=== PATIENT | male | born 1960 | race Caucasian/White ===

== ENCOUNTER 2025-04-01 07:24 | Inpatient (IN) ==
--- NOTE | 2025-03-25 13:18 | Anesthesiology Consultation ---
Date of Service March 25, 2025 Assessment & Plan (1) Encounter for pre-operative examination: - Infectious disease screening: Per assessment on 03/25/25- No known recent infectious disease contacts or current infectious disease symptoms. - Acceptable risk for surgery pending surgeon-ordered PCP preop evaluation (Dr. Robina Jurado, appt 03/25). Chart Review Chart Review: Patient NOT seen in Pre Admission Testing History Surgery Operation Date: 04/01/25 07:45 Proposed Procedures p L4-L5 Decompression and Fusion - Kareem Ventura, DO Height/Weight Height: 5 ft 11 in Weight: 83.915 kg Allergies Allergy/AdvReac Type Severity Reaction Status Date / Time No Known Allergies Allergy Verified 03/25/25 11:42 Medications Home Medications Medication Instructions Recorded Confirmed Last Taken atorvastatin 20 mg tablet 20 mg PO HS 03/25/25 03/25/25 Unknown cholecalciferol (vitamin D3) 125 125 mcg PO DAILY 03/25/25 03/25/25 Unknown mcg (5,000 unit) tablet (Vitamin D3) loperamide 2 mg capsule 2 mg PO Q6H PRN Diarrhea 03/25/25 03/25/25 Unknown multivitamin 1 tab PO QAM 03/25/25 03/25/25 Unknown Past Medical History Medical History CAD (coronary artery disease) stent x1 (2018) Constipation Dyslipidemia History of COVID-19 (2022) resolved IBS (irritable bowel syndrome) Past Surgical History Surgical History History of lumbar laminectomy x2 Hx of cardiac catheterization 2018 ( [place])- stent x1 Hx of colonoscopy Social History Smoking Status: Never smoker Do You Dip or Chew Tobacco: No Hx Alcohol Use: Yes alcohol intake frequency: a few times a week Hx Substance Use: No substance use type: does not use Lab Results Anesthesia Preop Results Results Anesthesia Widget: WBC 8.91 K/ul (4.8-10.8) 03/18/25 Hgb 15.2 g/dl (14.0-18.0) 03/18/25 Hct 45.8 % (42.0-52.0) 03/18/25 Plt 176 K/uL (130-400) 03/18/25 Na 137 mmol/L (136-145) 03/18/25 K 4.5 mmol/L (3.5-5.1) 03/18/25 Cl 101 mmol/L (98-107) 03/18/25 CO2 29 mmol/L (21-32) 03/18/25 BUN 22 mg/dl (6-23) 03/18/25 Creat 0.85 mg/dl (0.6-1.4) 03/18/25 Glucose Level 99 mg/dl (70-99(Fasting)) 03/18/25 PT 10.0 Seconds (9.0-12.0) 03/18/25 PTT 28 Seconds (21-31) 03/18/25 INR 0.9 (0.9-1.1) 03/18/25 Urine Color Yellow 03/18/25 Urine Appearance Clear (Clear) 03/18/25 Urine pH 5.5 (4.5-7.5) 03/18/25 Urine Specific [place] 1.023 (1.000-1.030) 03/18/25 Urine Protein Negative (Negative) 03/18/25 Urine Glucose (UA) Negative (Negative) 03/18/25 Urine Ketones Negative (Negative) 03/18/25 Urine Blood Negative (Negative) 03/18/25 Urine Nitrite Negative (Negative) 03/18/25 Urine Bilirubin Negative (Negative) 03/18/25 Urine Urobilinogen Negative (Negative) 03/18/25 Urine Leukocyte Esterase Negative (Negative) 03/18/25 Blood Type O Positive 03/18/25 Antibody Screen NEGATIVE 03/18/25 Testing Laboratory Results Urine culture 03/18/25: No growth Electrocardiogram Date: 03/18/25 Findings: + NSR @ (77) Chest X-Ray Date: 03/18/25 Findings: + NAD
[2025-04-01] MEDS: LR 60ML/HR IV SCH (07:45)
[2025-04-01] MEDS: CeleBREX 200 MG CAP PO SCH (07:46)
[2025-04-01] MEDS: ACETAMINOPHEN 500 MG TAB PO SCH (07:46)
[2025-04-01] MEDS: GABAPENTIN 300 MG CAP PO SCH (07:46)
[2025-04-01] MEDS: LR 15ML/HR IV SCH (07:59)
[2025-04-01] MEDS ORDERED: ATROPINE SULFATE 0.1 MG/ML 10ML SYR IV PRN (08:07)
[2025-04-01] MEDS ORDERED: HYDROmorphone INJ 1 MG/ML SYRINGE IV PRN ×2 (08:07→11:51)
[2025-04-01] MEDS ORDERED: ONDANSETRON INJ 2 MG/ML 2 ML VIAL IV PRN ×2 (08:07→11:51)
[2025-04-01] MEDS ORDERED: MIDAZOLAM HCL 1 MG/ML 2ML VIAL ONE (08:39)
--- NOTE | 2025-04-01 08:39 | History & Physical Bridge Note ---
Date of Service April 01, 2025 History & Physical Bridge Note I have examined the patient, reviewed the History & Physical and in the interval since the performance of the History & Physical I have noted the following changes of clinical significance: no changes noted
--- NOTE | 2025-04-01 08:40 | History & Physical Report ---
Date of Service April 01, 2025 Assessment & Plan (1) Lumbar disc herniation with radiculopathy: Plan: L4-L5 decompression and fusion History of Present Illness Chief Complaint: Back and left leg pain Primary Care Provider: Robina Jurado This is a 65-year-old male who presents with persistent back and left leg pain after failing course of nonoperative care is here for surgical invention. Allergies Allergy/AdvReac Type Severity Reaction Status Date / Time No Known Allergies Allergy Verified 04/01/25 07:35 Home Medications Medication Instructions Recorded Confirmed Type atorvastatin 20 mg tablet 20 mg PO HS 03/25/25 04/01/25 History cholecalciferol (vitamin D3) 125 125 mcg PO DAILY 03/25/25 04/01/25 History mcg (5,000 unit) tablet (Vitamin D3) loperamide 2 mg capsule 2 mg PO Q6H PRN Diarrhea 03/25/25 04/01/25 History multivitamin 1 tab PO QAM 03/25/25 04/01/25 History Past Med/Surg History Problem List (Updated 04/01/25 @ 08:40 by Kareem Ventura DO) Lumbar disc herniation with radiculopathy Encounter for pre-operative examination Medical History CAD (coronary artery disease) stent x1 (2018) Constipation Dyslipidemia History of COVID-19 (2022) resolved IBS (irritable bowel syndrome) Surgical History History of lumbar laminectomy x2 Hx of cardiac catheterization 2019 ([facility])- stent x1 Hx of colonoscopy Social History Smoking Status: Never smoker Second Hand Exposure: No; Do You Dip or Chew Tobacco: No; Tobacco Cessation Education Requested by Patient: No Hx Alcohol Use: Yes Hx Substance Use: No Preferred Language: Albanian Communication Ability: Effective 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
[2025-04-01] MEDS ORDERED: LIDOCAINE 2% 2 ML VIAL/AMP(20MG/ML) INFIL ONE (09:08)
[2025-04-01] MEDS ORDERED: PROPOFOL IV EMULSION 10 MG/ML 20 ML VIAL IV ONE (09:08)
[2025-04-01] MEDS ORDERED: ONDANSETRON INJ 2 MG/ML 2 ML VIAL ONE (09:09)
[2025-04-01] MEDS ORDERED: KETAMINE HCL 10MG/ML SYR ONE (09:09)
[2025-04-01] MEDS ORDERED: DEXAMETHASONE SOD INJ 4 MG/ML VIAL ONE (09:09)
[2025-04-01] MEDS ORDERED: ROCURONIUM BROMIDE 10 MG/ML 5 ML VIAL IV ONE (09:09)
[2025-04-01] MEDS ORDERED: PHENYLEPHRINE 100MCG/ML 5ML SYR ONE (09:14)
[2025-04-01] MEDS ORDERED: HYDROmorphone INJ 2 MG/ML SYR/VIAL ONE (09:21)
[2025-04-01] MEDS ORDERED: SUGAMMADEX SODIUM 200 MG/2 ML VIAL IV ONE (10:17)
[2025-04-01] MEDS: FLOSEAL HEMOSTATIC MATRIX 10ML TOP ONE (10:18)
[2025-04-01] MEDS: BUPIVACAINE/EPINEPHRINE 0.25% 1:200,000 30 ML VIAL ONE (10:19)
[2025-04-01] MEDS: ceFAZolin 330 MG/ML 1 GM VIAL ONE ×2 (10:19→10:20)
--- NOTE | 2025-04-01 10:23 | Operative Report ---
Post Operative Report Pre & Post Diagnosis Operation Date: 04/01/25 08:55 Pre-Op Diagnosis: #1 recurrent lumbar disc herniation L4-L5 #2 lumbar spondylosis with radiculopathy Post-Op Diagnosis: Same I identified the patient and participated in the time-out.: Yes Procedure Operation Date: 04/01/25 08:55 Actual Procedures #1 revision decompression with bilateral medial facetectomies and foraminotomies and removal of herniated free fragment L4-L5. #2 posterior spinal fusion L4-5. #3 placement posterior instrumentation L4-5 using Watkins. #4 interbody fusion L4-5 and #5 placement Spira 15 x 26 mm at L4-5 #6 placement of Proteus, with Koros in the posterior lateral gutters and os design interbody space. #7 application of versa wrap of exposed dura. Surgeon Kareem Ventura, DO Assessment Specialist Jeanine Maloney Estimated Blood Loss 50 Findings See Below Patient had significant scarring over the dura and exiting as well as traversing nerve roots. This created significant technical difficulty with dissection and removal of the disc fragments. This had at least 30% increased operative time. I am recommending a modifier 22. Specimens None Indications This is a 65-year-old male who presents publish diagnosis of failing course of nonoperative care is here for surgical invention. Description of Procedure Patient is met with identified informed consent obtained. Patient was then taken to the operative suite underwent patient placed in a prone position on the [place] table top Janes frame. All bony promises well-padded eyes inspected to ensure no external pressure placed upon them. This point lumbar spine was prepped and draped in normal sterile fashion. Sharp dissection with the assistance of Bovie cautery from down to and exposing the remaining lamina and transverse processes of L4-L5 bilaterally. A revision complete laminectomy of L4 was performed including bilateral medial facetectomies and foraminotomies. Marked adhesions and scarring worse noted on the left with the exiting and traversing nerve roots. I was able to dissect through the adhesions identified several fragments of free disc material. They removed in their entirety. Screws are then placed at L4-5 bilaterally with assistance of fluoroscopy. By way of transfer and approach and a left complete discectomy of L4-L5 was performed endplates corrected to subcortical bleeding bone and a 15 x 26 mm Spira cage filled with os design bone graft tapped in position. The rods were then compressed locked into final position bilaterally. The transverse processes of L4-5 burred to subcortical bone. Koros combined with Proteus bone graft placed and placed lateral gutters. Versa wrap placed of exposed dura. 15 round ELMO drain inserted. The incision was then closed with 1 Vicryl the fascia 2-0 Vicryl subcutaneously and 4 Monocryl for final skin closure. Steri-Strips sterile dressing placed. Patient waken taken to PACU stable condition. Please note Jeanine Maloney was present throughout the entire procedure and on the patient positioning complex portion of the surgery and final skin closure. I attest to the content of the Intraoperative Record and any orders documented therein. Any exceptions are noted below.
[2025-04-01] MEDS ORDERED: FAMOTIDINE 20 MG TAB PO PRN (11:51)
[2025-04-01] MEDS ORDERED: METOCLOPRAMIDE HCL INJ 5 MG/ML 2 ML VIAL IV PRN (11:51)
[2025-04-01] MEDS ORDERED: ONDANSETRON 4 MG OD TAB PO PRN (11:51)
[2025-04-01] MEDS ORDERED: SOD PHOSPHATE/SOD BIPHOSPHATE ENEMA 132 ML BTL PR PRN (11:51)
[2025-04-01] MEDS ORDERED: ALUMINUM/MAGNESIUM SUSP 30 ML UDC PO PRN (11:51)
[2025-04-01] MEDS ORDERED: DO NOT ADMINISTER FLU VACCINE PRN (11:51)
[2025-04-01] MEDS ORDERED: LORazepam 0.5 MG TAB PO PRN (11:51)
[2025-04-01] MEDS ORDERED: HYDROmorphone INJ 0.5 MG/0.5 ML SYR IV PRN (11:51)
[2025-04-01] MEDS ORDERED: diphenhydrAMINE Capsule 25 MG CAP PO PRN (11:51)
[2025-04-01] MEDS ORDERED: LORazepam Inj 0.5 MG in SYRINGE 0.25 ML IV PRN (11:51)
[2025-04-01] MEDS ORDERED: NALOXONE HCL 0.4 MG/1 ML VIAL/CARP IV PRN (11:51)
[2025-04-01] MEDS ORDERED: MAGNESIUM HYDROXIDE SUSP 30 ML UDC PO PRN (11:51)
[2025-04-01] MEDS ORDERED: PROMETHAZINE 12.5 MG/50.5 ML BAG IV PRN (11:51)
[2025-04-01] MEDS ORDERED: ACETAMINOPHEN 1,000 MG/100 ML VIAL IV PRN (11:51)
[2025-04-01] MEDS ORDERED: KETOROLAC 30 MG/ML VIAL IV PRN (11:51)
[2025-04-01] MEDS ORDERED: DO NOT ADMINISTER PNEUMOCOCCAL VACCINE PRN (11:51)
[2025-04-01] MEDS ORDERED: LOPERAMIDE HCL 2 MG CAP PO PRN (11:51)
[2025-04-01] MEDS: LACTATED RINGER'S 1,000 ML IV SCH (12:35)
--- NOTE | 2025-04-01 12:47 | Anesthesiology Progress Note ---
Date of Service April 01, 2025 Anesthesia Post Procedure Vital Signs Vital Signs: Temp Pulse Pulse Resp BP Pulse Ox O2 Del Method 04/01/25 12:15 36.4 C L 66 14 130/80 96 Room Air 04/01/25 11:45 36.3 C L 68 14 146/90 H 95 Room Air 04/01/25 11:30 66 12 117/73 95 Room Air 04/01/25 11:20 69 16 125/78 95 Room Air 04/01/25 11:10 36.5 C 71 12 128/83 96 Room Air 04/01/25 11:00 70 12 140/88 95 Room Air 04/01/25 10:50 77 14 134/85 95 Room Air 04/01/25 10:40 80 14 131/78 97 Oxymask 04/01/25 10:33 36.5 C 87 15 146/90 H 93 Oxymask 04/01/25 07:48 36.6 C 89 20 149/89 H 96 Room Air O2 Flow Rate 04/01/25 12:15 04/01/25 11:45 04/01/25 11:30 04/01/25 11:20 04/01/25 11:10 04/01/25 11:00 04/01/25 10:50 04/01/25 10:40 5 04/01/25 10:33 5 04/01/25 07:48 Pain Intensity Lower Back: Pain Intensity: 3 Transfer of Care Handoff Completed per policy Notes Mental Status: alert / awake / arousable Patient Amnestic to Procedure: Yes Nausea / Vomiting: adequately controlled Pain: adequately controlled Airway Patency, RR, SpO2: stable & adequate BP & HR: stable & adequate Hydration State: stable & adequate Anesthetic Complications: no major complications apparent and Pt Satisfied with anesthetic care
--- NOTE | 2025-04-01 13:03 | Fluoroscopy Report ---
FL lumbar spine 2-3V CLINICAL HISTORY: L4-L5 DECOMPRESSION AND FUSION COMPARISON STUDY: None FLUOROSCOPY TIME: 14 seconds FLUOROSCOPY IMAGES: 2 EXPOSURE DOSE: 13 mGy FINDINGS: Fluoroscopy was provided for L4-5 fusion. IMPRESSION: Intraoperative fluoroscopy. ACT 112: Negative or not required by law. Electronically signed by: Rommel Bravo M.D. 04/01/2025 1:02 PM
[2025-04-01] MEDS: ACETAMINOPHEN 500 MG TAB PO PRN (16:08)
[2025-04-01] MEDS: COUGH DROP (SUGAR FREE) LOZ 24 LOZ/1 BOX BUCCAL ONE (18:00)
[2025-04-01] MEDS: ATORVASTATIN 20 MG TAB PO SCH (20:12)
[2025-04-01] MEDS: DOCUSATE SODIUM/SENNA 50/8.6MG TAB PO SCH (20:12)
[2025-04-02 04:41] LABS: Hematocrit (blood only) 37.6 % (42.0-52.0); Hemoglobin 13.3 g/dl (14.0-18.0); Immature Granulocytes # (auto) 0.07 K/uL (0.01-0.20); Immature Granulocytes % (auto) 0.5 %; Mean Corpuscular Hemoglobin 30.0 pg (25.0-34.0); Mean Corpuscular Volume 84.9 fL (80.0-100.0); Platelet Count 156 K/uL (130-400); RDW Standard Deviation 39.6 fL (36.4-46.3); Red Blood Count 4.43 M/uL (4.70-6.10); White Blood Count 15.06 K/ul (4.8-10.8)
[2025-04-02 04:57] LABS: Anion Gap 8.0 (3-11); Blood Urea Nitrogen 17.0 mg/dl (6-23); Calcium 8.6 mg/dl (8.6-10.3); Carbon Dioxide 24.0 mmol/L (21-32); Chloride 104.0 mmol/L (98-107); Creatinine Clr Calc Pharmacy 108.9 ml/min; Glucose 135.0 mg/dl (70-99(Fasting)); Potassium 4.1 mmol/L (3.5-5.1); Sodium 136.0 mmol/L (136-145)
[2025-04-02] MEDS: POLYETHYLENE (MIRALAX) 17 GM PACK PO SCH (05:37)
--- NOTE | 2025-04-02 08:33 | Orthopedic Progress Note ---
Date of Service April 02, 2025 Assessment & Plan (1) Lumbar disc herniation with radiculopathy: Plan: Lopez postoperative day 1 status post lumbar decompression and fusion of L4-5. He is go start physical therapy. Maintain ELMO drain. DVT prophylaxis is in the form teds and SCDs. Work on aggressive bowel regimen. Anticipate discharge home over the next day or 2 Admission and Anticipated Discharge Date Admission Date: April 01, 2025 Subjective Lopez postoperative day 1 status post L4-5 decompression and fusion. He has had an uneventful evening. Pain is improved compared to preoperative status. H&H this morning are 13.3 and 37.6 respectively. ELMO drain output left shift is 50 cc. No other complaints. Review of Systems Review of Systems: All systems reviewed & are unremarkable except as noted in HPI & below Physical Exam Physical Exam: He is laying in bed in no acute distress Alert and oriented x 3 dressing is clean dry and intact with functioning ELMO drain strength intact bilateral lower extremities Results & Data Vital Signs (Past 12 Hours) Vital Signs Temp Pulse Resp BP Pulse Ox O2 Del Method 04/02/25 07:41 36.4 C L 83 20 125/74 94 Room Air 04/02/25 03:00 36.6 C 88 16 121/69 94 Room Air 04/01/25 23:52 36.7 C 88 16 123/74 94 Room Air
[2025-04-02] MEDS: CHOLECALCIFEROL 125 MCG (5,000 UNITS) TAB PO SCH (08:34)
[2025-04-02] MEDS: MULTIVITAMIN TAB PO SCH (08:34)
[2025-04-02] MEDS: dexAMETHasone 6 MG in SYRINGE 0 ML IV SCH (08:35)
[2025-04-03 07:19] VITALS: BP 128/79; PULSE 73; RESP 20; TEMP 97.9; O2SAT 95
--- NOTE | 2025-04-03 08:02 | Discharge Summary ---
Date of Service April 03, 2025 Admission HPI Per Admitting Provider This is a 65-year-old male who presents with persistent back and left leg pain after failing course of nonoperative care is here for surgical invention. Discharge Data Procedures Performed Operation Date: 04/01/25 08:55 Actual Procedures p L4-L5 Decompression and Fusion(Not Applicable) - Kareem Ventura DO Hospital Course (1) Lumbar disc herniation with radiculopathy: Patient is a pleasant 65-year-old male with history radiographic images and p hysical exam consistent with the above-mentioned diagnosis. For this reason is brought to the operating room and undergone a lumbar decompression and fusion at L4-5. This performed by Dr. Ventura under general anesthesia. He left the operating room with a ELMO drain in place and transferred to PACU in stable condition. He was then transferred to the orthopedic floor. Is placed on GI DVT prophylaxis. He was seen by physical therapy postop day 1. Today on postop day #2 he is independent ambulating needs minimal pain medication and is safe for home discharge. His discharge instructions are to change dressing once daily till there is no drainage once there is no drainage he may shower and leave the incision open to air. He was to avoid any bending lifting or twisting. He is to refrain from driving for 2 weeks until he is seen in the office. He was call the office to be seen sooner than 2 weeks if he developed any increasing pain drainage from the incision and redness around the incision or weakness in the legs.
== END 2025-04-03 11:11 | disposition home or self-care (01) | DRG 402 ==
LOC: ASU 07:24 → 3W 10:28